=== PATIENT | male | born 1995 | race Caucasian/White ===

== ENCOUNTER 2017-10-12 23:06 | Emergency (ER) | payer SELFPAY ==
[2017-10-12 23:34] VITALS: RESP 18
--- NOTE | 2017-10-13 00:19 | ED PDOC ---
HPI: Altered Mental Status Time Seen by Provider: 10/12/17 23:37 Chief Complaint (Nursing): Weakness/Neurological Deficit Chief Complaint (Provider): Weakness/Neurological Deficit History Per: Patient History/Exam Limitations: None Additional Complaint(s): Patient is a 22 y/o male with history of anxiety and alcohol abuse. Patient states that for the past x1 week he has been drinking alcohol every night but has not drank in the past x24 hours. Prior to arrival he was sleeping and awoke to feeling shortness of breath, palpitations, dizziness, and felt weak but upon arrival to ED symptoms resolved and he feels fine. He denies drug abuse. He has no chest pain, shortness of breath, currently and denies any other symptoms. Past Medical History Reviewed: Historical Data, Nursing Documentation, Vital Signs Vital Signs: Last Vital Signs Temp 98.2 F 10/12/17 23:08 Pulse 67 10/12/17 23:24 Resp 18 10/12/17 23:24 BP 126/70 10/12/17 23:24 Pulse Ox 99 10/12/17 23:24 - Medical History PMH: Anxiety, Depression - Surgical History Surgical History: Appendectomy - Family History Family History: States: Unknown Family Hx - Allergies Allergies/Adverse Reactions: Allergies Allergy/AdvReac Type Severity Reaction Status Date / Time No Known Allergies Allergy Verified 10/12/17 23:08 Review of Systems ROS Statement: Except As Marked, All Systems Reviewed And Found Negative Constitutional: Negative for: Fever Physical Exam - Reviewed Nursing Documentation Reviewed: Yes Vital Signs Reviewed: Yes - Physical Exam Appears: Positive for: Non-toxic, No Acute Distress Head Exam: Positive for: ATRAUMATIC, NORMOCEPHALIC Skin: Positive for: Normal Color, Warm, Dry Eye Exam: Positive for: EOMI, Normal appearance, PERRL Neck: Positive for: Normal, Painless ROM, Supple Cardiovascular/Chest: Positive for: Regular Rate, Rhythm. Negative for: Murmur Respiratory: Positive for: Normal Breath Sounds. Negative for: Respiratory Distress Gastrointestinal/Abdominal: Positive for: Normal Exam, Soft. Negative for: Tenderness Back: Positive for: Normal Inspection. Negative for: L CVA Tenderness, R CVA Tenderness Extremity: Positive for: Normal ROM. Negative for: Pedal Edema, Deformity Neurologic/Psych: Positive for: Alert, Oriented. Negative for: Motor/Sensory Deficits - ECG O2 Sat by Pulse Oximetry: 99 (RA) Medical Decision Making Medical Decision Making: Time: 00:08 A/P: 22 y/o male with history of anxiety presenting with resolved symptoms of palpitations with dizziness and weakness. Patient's vitals are stable and physical exam is normal and patient is appearing well. He is likel suffering from anxiety attack and holiday heart syndrome. No acute intervention necessary at this time except EKG and finger stick. Will refer patient to [facility]. Initial Plan: --EKG ----- Scribe Attestation: Documented by Randy Singh, acting as a scribe for Abram Casey MD. Provider Scribe Attestation: All medical record entries made by the Scribe were at my direction and personally dictated by me. I have reviewed the chart and agree that the record accurately reflects my personal performance of the history, physical exam, medical decision making, and the department course for this patient. I have also personally directed, reviewed, and agree with the discharge instructions and disposition. Disposition - Clinical Impression Clinical Impression: Palpitations - Disposition Referrals: [facility] [Outside] Disposition Time: 01:00 Condition: STABLE Instructions: Alcohol Use - When Is Drinking a Problem?, Palpitations, Anxiety , Adult (DC) Forms: [facility] (Urdu)
[2017-10-13 01:02] VITALS: BP 108/75; PULSE 74; TEMP 98.3
[2017-10-13 04:25] VITALS: O2SAT 99
--- NOTE | 2017-10-13 08:30 | CARD ---
APPROVED REPORT Date of service: 10/13/2017 <Conclusion> Sinus rhythm with marked sinus arrhythmia Otherwise normal ECG
== END 2017-10-13 01:07 | disposition home or self-care (01) ==
LOC: H.ER 23:06
DX: R00.2 Palpitations (principal); M62.81 Muscle weakness (generalized); F32.9 Major depressive disorder, single episode, unspecified; F41.9 Anxiety disorder, unspecified

== ENCOUNTER 2017-11-24 17:21 | Emergency (ER) | payer SELFPAY ==
[2017-11-24 18:31] LABS: BASO % 0.3 % (0.0-2.0); EOS % 0.5 % (0.0-4.0); HEMOGLOBIN 14.6 g/dL (12.0-18.0); LYMPH # 1.8 K/uL (1.0-4.3); LYMPH % 24.4 % (20.0-40.0); MEAN CELL VOLUME 92.9 fl (80.0-94.0); MEAN CORPUSCULAR HEMOGLOBIN 31.7 pg (27.0-31.0); MEAN CORPUSCULAR HGB CONC 34.1 g/dL (33.0-37.0); MEAN PLATELET VOLUME 8.5 fl (7.2-11.7); MONO # 0.6 K/uL (0.0-0.8); NEUT # 4.7 K/uL (1.8-7.0); NEUT % 65.8 % (50.0-75.0); RBC 4.61 Mil/uL (4.40-5.90); RED CELL DISTRIBUTION WIDTH 13.1 % (11.5-14.5); WHITE BLOOD COUNT 7.2 K/uL (4.8-10.8)
[2017-11-24 18:36] LABS: PROTHROMBIN TIME 10.6 Seconds (9.8-13.1)
[2017-11-24 18:38] LABS: PARTIAL THROMBOPLASTIN TIME 32.1 Seconds (25.6-37.1)
--- NOTE | 2017-11-24 18:43 | RAD ---
Date of service: 11/24/2017 HISTORY: cough, chest tightness COMPARISON: No prior. TECHNIQUE: Chest PA and lateral FINDINGS: LUNGS: No active pulmonary disease. PLEURA: No significant pleural effusion identified. No pneumothorax apparent. CARDIOVASCULAR: Normal. OSSEOUS STRUCTURES: No significant abnormalities. VISUALIZED UPPER ABDOMEN: Normal. OTHER FINDINGS: None. IMPRESSION: No active disease.
[2017-11-24 18:47] LABS: ALB/GLOB RATIO 1.3 (1.0-2.1); ALBUMIN 4.2 g/dL (3.5-5.0); ALT/SGPT 26 U/L (21-72); AST/SGOT 22 U/L (17-59); BLOOD UREA NITROGEN 10 mg/dl (9-20); CALCIUM 9.2 mg/dL (8.4-10.2); GFR NON-AFRICAN AMERICAN > 60
[2017-11-24 18:55] LABS: BARBITURATES, UR NEGATIVE (NEGATIVE); BENZODIAZEPINES, UR NEGATIVE (NEGATIVE); OPIATES, UR NEGATIVE (NEGATIVE); PHENCYCLIDINE, UR NEGATIVE (NEGATIVE)
[2017-11-24 20:30] VITALS: O2SAT 100
--- NOTE | 2017-11-24 21:13 | ED PDOC ---
Syncope/Near Syncope/Dizziness Time Seen by Provider: 11/24/17 17:45 Chief Complaint (Nursing): Chest Pain Chief Complaint (Provider): dizziness, nausea, chest tightness History Per: Patient History/Exam Limitations: no limitations Onset/Duration Of Symptoms: Intermittent Episodes (x2 days), Worse Since (today) Current Symptoms Are (Timing): Still Present Additional Complaint(s): Gregg Montes is a 22 year old male, with a past medical history of anxiety, who presents to the emergency department for evaluation of intermittent episodes of chest tightness, lightheadedness, nausea, and dizziness onset for x2 days but symptoms worsened today. Patient has a history of anxiety but states current symptoms are more intense than usual. He denies any shortness of breath, cough, vomiting, diarrhea, abdominal pain, headache, changes in vision, fever, or chills. No further medical complaints. No medications taken [employer]. PMD: None provided. Past Medical History Reviewed: Historical Data, Nursing Documentation, Vital Signs Vital Signs: Last Vital Signs Temp 98.7 F 11/24/17 17:22 Pulse 61 11/24/17 20:29 Resp 19 11/24/17 20:29 BP 130/73 11/24/17 20:29 Pulse Ox 100 11/24/17 20:29 - Medical History PMH: Anxiety, Depression - Surgical History Surgical History: Appendectomy - Family History Family History: States: Unknown Family Hx - Social History Current smoker - smoking cessation education provided: Yes (Quit 1.5 month ago ) Alcohol: Social Drugs: Other (Former MDMA and opiate abuser) - Allergies Allergies/Adverse Reactions: Allergies Allergy/AdvReac Type Severity Reaction Status Date / Time No Known Allergies Allergy Verified 10/12/17 23:08 Review of Systems ROS Statement: Except As Marked, All Systems Reviewed And Found Negative Constitutional: Negative for: Fever, Chills Eyes: Negative for: Vision Change Cardiovascular: Positive for: Light Headedness, Other (chest tightness) Respiratory: Negative for: Cough, Shortness of Breath Gastrointestinal: Positive for: Nausea. Negative for: Vomiting, Abdominal Pain, Diarrhea Neurological: Positive for: Dizziness. Negative for: Headache Physical Exam - Reviewed Nursing Documentation Reviewed: Yes Vital Signs Reviewed: Yes - Physical Exam Comments: GENERAL APPEARANCE: Patient is awake, alert, oriented x 3, in no acute distress. Resting comfortably. SKIN: Warm, dry; (-) cyanosis. EYES: (-) conjunctival pallor. ENMT: Mucous membranes moist. Airway patent, (-) stridor. Pharynx: clear, uvula midline (-) erythema (-) exudate. NECK: Supple, FROM (-) tenderness, (-) stiffness, (-) lymphadenopathy CHEST AND RESPIRATORY: (-) rales, (-) rhonchi, (-) wheezes, (-) rub; breath sounds equal bilaterally. Respirations even and nonlabored. HEART AND CARDIOVASCULAR: (-) irregularity ABDOMEN AND GI: Soft; (-) distention, (-) tenderness, (-) guarding EXTREMITIES: (-) deformity; (-) edema, (-) calf tenderness. NEURO AND PSYCH: Mental status as above. Cranial nerves grossly intact; strength symmetric. Steady gait. Cerebellar tests normal. Speech: clear. (-) facial asymmetry (-) aphasia. - Laboratory Results Result Diagrams: 11/24/17 18:25 11/24/17 18:25 - ECG O2 Sat by Pulse Oximetry: 100 (RA) Pulse Ox Interpretation: Normal Medical Decision Making Medical Decision Making: Time: 17:45 Initial Impression: Lightheadedness, Chest Tightness, Dizziness, to consider anxiety Initial Plan: --CMP --Drug screen, urine --Troponin I --CBC w/ differential --PTT --PT --Chest two views (PA/LAT) [RAD] --Antivert 25 mg PO --Zofran Inj 4 mg IVP --Reevaluation --Patient declining to speak to crisis at this time. EKG: NSR @ 93bpm (-) ST elevation, QTc 412 [id number] Labs reviewed and grossly unremarkable. 0 On re-evaluation, patient reports persistent dizziness. Gait is steady in ED without assistance. Tolerating PO intake. CT head without contrast ordered. 1999 Case endorsed to Sheila Rand PA-C pending CT evaluation and further disposition. Scribe Attestation: Documented by Joe Duarte, acting as a scribe for Kari Estrada PA-C. Provider Scribe Attestation: All medical record entries made by the Scribe were at my direction and personally dictated by me. I have reviewed the chart and agree that the record accurately reflects my personal performance of the history, physical exam, medical decision making, and the department course for this patient. I have also personally directed, reviewed, and agree with the discharge instructions and disposition. Disposition - Clinical Impression Clinical Impression: Anxiety, Dizziness, Chest tightness, Lightheadedness - Patient ED Disposition Is Patient to be Admitted: Transfer of Care (S. Rand at [address] head, further disposition) - Disposition Disposition: Transfer of Care (S. Rand at [address] head, further disposition) Disposition Time: 20:00 Condition: FAIR - POA Present On Arrival: None Results - Lab Results Lab Results: 11/24/17 11/24/17 11/24/17 18:25 18:25 18:25 WBC 7.2 RBC 4.61 Hgb 14.6 Hct 42.8 MCV 92.9 MCH 31.7 H MCHC 34.1 RDW 13.1 Plt Count 255 MPV 8.5 Neut % (Auto) 65.8 Lymph % (Auto) 24.4 Leon % (Auto) 9.0 Eos % (Auto) 0.5 Baso % (Auto) 0.3 Neut # (Auto) 4.7 Lymph # (Auto) 1.8 Leon # (Auto) 0.6 Eos # (Auto) 0.0 Baso # (Auto) 0.0 PT 10.6 INR 1.0 APTT 32.1 Sodium 141 Potassium 3.7 Chloride 107 Carbon Dioxide 28 Anion Gap 10 BUN 10 Creatinine 0.8 Est GFR ( Amer) > 60 Est GFR (Non-Af Amer) > 60 Random Glucose 88 Calcium 9.2 Total Bilirubin 0.8 AST 22 ALT 26 Alkaline Phosphatase 57 Troponin I < 0.0120 Total Protein 7.3 Albumin 4.2 Globulin 3.1 Albumin/Globulin Ratio 1.3 Urine Opiates Screen Urine Methadone Screen Ur Barbiturates Screen Ur Phencyclidine Scrn Ur Amphetamines Screen U Benzodiazepines Scrn U Oth Cocaine Metabols U Cannabinoids Screen 11/24/17 18:20 WBC RBC Hgb Hct MCV MCH MCHC RDW Plt Count MPV Neut % (Auto) Lymph % (Auto) Leon % (Auto) Eos % (Auto) Baso % (Auto) Neut # (Auto) Lymph # (Auto) Leon # (Auto) Eos # (Auto) Baso # (Auto) PT INR APTT Sodium Potassium Chloride Carbon Dioxide Anion Gap BUN Creatinine Est GFR ( Amer) Est GFR (Non-Af Amer) Random Glucose Calcium Total Bilirubin AST ALT Alkaline Phosphatase Troponin I Total Protein Albumin Globulin Albumin/Globulin Ratio Urine Opiates Screen Negative Urine Methadone Screen Negative Ur Barbiturates Screen Negative Ur Phencyclidine Scrn Negative Ur Amphetamines Screen Negative U Benzodiazepines Scrn Negative U Oth Cocaine Metabols Negative U Cannabinoids Screen Negative
--- NOTE | 2017-11-24 21:48 | ED PDOC ---
- Laboratory Results Result Diagrams: 11/24/17 18:25 11/24/17 18:25 - ECG O2 Sat by Pulse Oximetry: 100 (RA) - Progress ED Course And Treament: head ct: nad Patient states he feels improved. Given outpatient resources for mental health. Disposition - Clinical Impression Clinical Impression: Anxiety, Dizziness - POA Present On Arrival: None - Disposition Referrals: [facility] [Outside] Disposition: Routine/Home Disposition Time: 21:48 Condition: FAIR Instructions: Anxiety, Adult (DC)
[2017-11-24 21:49] VITALS: BP 125/77; PULSE 59; RESP 15; TEMP 98
--- NOTE | 2017-11-25 08:56 | CT ---
Date of service: 11/24/2017 PROCEDURE: CT HEAD WITHOUT CONTRAST. HISTORY: dizziness, near syncope COMPARISON: None available. TECHNIQUE: Axial computed tomography images were obtained through the head/brain without intravenous contrast. Radiation dose: Total exam DLP = 872.1 mGy-cm. This CT exam was performed using one or more of the following dose reduction techniques: Automated exposure control, adjustment of the mA and/or kV according to patient size, and/or use of iterative reconstruction technique. FINDINGS: HEMORRHAGE: No intracranial hemorrhage. BRAIN: No mass effect or edema. No atrophy or chronic microvascular ischemic changes. VENTRICLES: Unremarkable. No hydrocephalus. CALVARIUM: Unremarkable. PARANASAL SINUSES: Unremarkable as visualized. No significant inflammatory changes. MASTOID AIR CELLS: Unremarkable as visualized. No inflammatory changes. OTHER FINDINGS: None. IMPRESSION: No acute intracranial pathology.
== END 2017-11-24 21:56 | disposition home or self-care (01) ==
LOC: H.ER 17:21
DX: R42 Dizziness and giddiness (principal); F41.9 Anxiety disorder, unspecified; R07.89 Other chest pain; F32.9 Major depressive disorder, single episode, unspecified; F17.200 Nicotine dependence, unspecified, uncomplicated
CPT/HCPCS: 70450; 71046; 80053; 84484; 85025; 85610; 85730; 96374; 99284; G0480; J2405